=== PATIENT | male | born 1960 | race Two or more races ===

== ENCOUNTER 2020-03-15 14:36 | Outpatient (CLI) | payer MEDICAID ==
[~2020-03-15] VITALS: Ht 170.2 cm; Wt 75.7 kg
[2020-03-15 14:46] VITALS: BP 113/76
--- NOTE | 2020-03-15 18:00 | Consultation ---
DATE OF CONSULTATION: 03/15/2020 GASTROENTEROLOGY CONSULTATION CHIEF COMPLAINT: Abdominal pain, bloating, gas distention. PAST MEDICAL HISTORY: 1. H pylori gastritis. 2. Esophagitis. PAST SURGICAL HISTORY: Ventral hernia repair, shoulder surgery, carpal tunnel surgery. MEDICATIONS: See medication reconciliation list. FAMILY HISTORY: No family history of GI malignancies. SOCIAL HISTORY: The patient denies any tobacco, alcohol, or drug abuse. ALLERGIES: No known allergies. REVIEW OF SYSTEMS: Positive for severe bloating, gas, abdominal distention. PHYSICAL EXAMINATION: VITAL SIGNS: Temperature 97.5, blood pressure 113/76, pulse 80, respirations 20. HEENT: Normocephalic, atraumatic. Sclerae are anicteric. NECK: Supple. No evidence of obvious lymphadenopathy. CARDIOVASCULAR: Regular rate and rhythm. Plus S1 and S2. LUNGS: Clear to auscultation bilaterally. ABDOMEN: Positive bowel sounds. Soft and nontender. No rebound. No guarding. No peritoneal sign. EXTREMITIES: No cyanosis. No clubbing. No edema. ASSESSMENT AND PLAN: This is a 60-year-old male with severe abdominal bloating and gas. Last endoscopy and colonoscopy was done in 2018. It is questionable if the patient had H pylori infection or not. The patient was given the breath test to be done, but never was done. His diagnosis at this time so far seems the patient has SIBO/small intestinal bacterial overgrowth. Our plan will be to start the patient on treatment for SIBO. We are going to order Xifaxan 550 mg t.i.d. for insurance coverage. Otherwise, we are going to try Augmentin 875 mg b.i.d. for 10 days. The patient also was given a prescription for Align 1 tablet p.o. daily. We are also going to send the stool for H pylori to see if the patient needs treatment for H pylori. Johann Gonzalez M.D. DR: DWAIN JOB#: [id number] CC:
== END 2020-03-15 16:36 | disposition home or self-care (01) ==
LOC: PAN 14:36
DX: R10.9 Unspecified abdominal pain (principal); R14.0 Abdominal distension (gaseous); R14.3 Flatulence
CPT/HCPCS: G0463